=== PATIENT | male | born 1980 ===

== ENCOUNTER 2017-09-09 15:47 | Emergency (ER) | payer OTHER ==
[2017-09-09 16:18] VITALS: BMI 25.8
[2017-09-09 16:22] VITALS: RESP 18; O2SAT 98
--- NOTE | 2017-09-09 17:00 | C.PDOC ---
History Of Present Illness 37 yr old male presents to the ER for evaluation of left knee pain developed for the past few hrs. Patient is s/p mechanical fall, states he twisted his left knee and heard a click. Patient reports the pain is worse with weight bearing. Denies other injuries, obvious deformity, weakness, sensory or vascular deficits to Left leg. Time Seen by Provider: 09/09/17 16:36 Chief Complaint (Nursing): Lower Extremity Problem/Injury History Per: Patient History/Exam Limitations: no limitations Onset/Duration Of Symptoms: Sudden Onset ([employer] few hrs ago) Past Medical History Reviewed: Historical Data, Nursing Documentation, Vital Signs Vital Signs: Last Vital Signs Temp 98.1 F 09/09/17 16:18 Pulse 63 09/09/17 16:18 Resp 18 09/09/17 16:18 BP 115/80 09/09/17 16:18 Pulse Ox 98 09/09/17 17:42 Family History: States: No Known Family Hx - Social History Hx Alcohol Use: Yes Hx Substance Use: No - Immunization History Hx Tetanus Toxoid Vaccination: Yes (2017) Hx Influenza Vaccination: No Hx Pneumococcal Vaccination: No Review Of Systems Except As Marked, All Systems Reviewed And Found Negative. Musculoskeletal: Positive for: Other ((+) Left knee pain). Negative for: Leg Pain, Foot Pain Neurological: Negative for: Weakness, Numbness Physical Exam - Physical Exam Appears: Non-toxic, No Acute Distress Skin: Warm, Dry, No Rash Head: Atraumatic, Normacephalic Extremity: Normal ROM (discomfort to knee flexion due to pain. No neurovascular deficits.), Tenderness (Left Knee - Tenderness over the medial aspect), No Calf Tenderness, No Deformity, No Swelling Neurological/Psych: Oriented x3, Normal Speech, Normal Motor, Normal Sensation, Normal Reflexes ED Course And Treatment O2 Sat by Pulse Oximetry: 98 (RA) Pulse Ox Interpretation: Normal - Other Rad Left knee X-Ray: Interpreted by Me, Viewed By Me Interpretation: (-) acute fx or dislocation Progress Note: On re-evaluation, pt is afebrile, hemodynamicaly stable. Non- toxic. Left knee; mild tenderness medial spect. No deformity, no neurovascular deficits. neuorlogicaly intact. Imaging review and appears normal. Knee imobilizer applined to Left knee. Crutches given. Pt advised. re.f to F/U with Ortho in 2-3 days for re-eavl. return if any new changes. Medical Decision Making Medical Decision Making: PLAN: * X-Ray - Left Knee * Motrin PO Disposition Counseled Patient/Family Regarding: Studies Performed, Diagnosis, Need For Followup - Disposition Referrals: Sigifredo Lofton III, MD [Staff Provider] - [facility] [Outside] Disposition: HOME/ ROUTINE Disposition Time: 17:40 Condition: STABLE Additional Instructions: KNEE IMMOBILZIER FOR 1-2 WEEKS TAKE PAIN MEDICATION NEED FOLLOW UP WITH ORTHOPEDIST IN 2-3 DAYS FOR RE-EVALUATION. RETURN TO ED IF ANY WORSENING OR NEW CHANGES. 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 - Scribe Statement The provider has reviewed the documentation as recorded by the Scribe May Krueger All medical record entries made by the Scribe were at my direction and personally dictated by me. I have reviewed the chart and agree that the record accurately reflects my personal performance of the history, physical exam, medical decision making, and the department course for this patient. I have also personally directed, reviewed, and agree with the discharge instructions and disposition.
[2017-09-09 18:52] VITALS: BP 116/79; PULSE 66; TEMP 98.2
--- NOTE | 2017-09-10 09:07 | RAD ---
PROCEDURE: Left Knee Radiographs. HISTORY: Pain. COMPARISON: None. FINDINGS: BONES: No acute fracture. JOINTS: Remarkable. JOINT EFFUSION: None. OTHER FINDINGS: None. IMPRESSION: No demonstrated fracture or dislocation.
== END 2017-09-09 19:05 | disposition home or self-care (01) ==
LOC: C.ER 15:47
DX: S83.92XA Sprain of unspecified site of left knee, initial encounter (principal); W18.30XA Fall on same level, unspecified, initial encounter